=== PATIENT | female | born 1975 | race Caucasian/White ===

== ENCOUNTER 2022-05-18 03:18 | Outpatient (CLI) | payer BC, SELFPAY ==
[2022-05-18 15:50] LABS: Abs Immature Grans 0.05 10^3/uL (0.0-0.06); Absolute Basophil Count 0.05 10^3/uL (0.0-0.2); Absolute Eosinophil Count 0.12 10^3/uL (0.0-0.7); Absolute Lymphocyte Count 1.65 10^3/uL (1.2-3.4); Absolute Monocyte Count 0.58 10^3/uL (0.1-0.8); Basophils % 0.6; Eosinophils % 1.3; HCT 39.1 % (36.0-46.0); HGB 13.2 g/dL (11.2-15.7); Immature Grans % 0.6; Lymphocytes % 18.4; MCH 30.5 pg (27.0-33.0); MCHC 33.8 % (32.0-36.0); MCV 90 fL (80-95); MPV 9.2 fL (8.0-11.0); Monocytes % 6.5; Neutrophils % 72.6; Platelet Count 295 10^3/uL (130-400); RBC 4.33 10^6/uL (3.93-5.22); RDW 13.1 % (11.7-14.6); RDW-SD 43.4 fL; WBC 8.95 10^3/uL (4.4-10.8)
[2022-05-18 16:47] LABS: Iron 70 ug/dL (50-170); Total Iron Binding Capacity 293 ug/dL (250-450); Transferrin Sat 24 % (15-50)
[2022-05-18 17:16] LABS: ALT 20 U/L (14-59); AST 10 U/L (15-37); Albumin 3.7 g/dL (3.4-5.0); Alkaline Phosphatase 91 U/L (46-116); Anion Gap 9.8 mmol/L (3-11); BUN 17 mg/dL (7-18); Bilirubin, Total 0.4 mg/dL (0.2-1.0); CO2 24.2 mmol/L (21.0-32.0); CREATININE 0.7 mg/dL (0.55-1.02); Calcium 9.2 mg/dL (8.5-10.1); Calculated LDL 110 mg/dL (<100); Chloride 106 mmol/L (98-107); Cholesterol 191 mg/dL (<200); Ferritin 64 ng/mL (8-252); Folate 8.6 ng/mL (8.6-20.0); Glucose 98 mg/dL (74-106); HDL Cholesterol 49 mg/dL (40-60); Magnesium 2.2 mg/dL (1.8-2.4); Potassium 3.4 mmol/L (3.5-5.1); Sodium 140 mmol/L (136-145); TSH 1.48 uIU/mL (0.36-3.74); Total Protein 7.7 g/dL (6.4-8.2); Triglyceride 161 mg/dL (<150); Vitamin B12 383 pg/mL (193-986)
[2022-05-18 17:29] LABS: Vitamin D 25 Total 31.9 ng/mL (30-100)
[2022-05-18 17:32] LABS: FREE T4 0.72 ng/dL (0.76-1.46)
[2022-05-19 20:11] LABS: T3,Free 3.5 pg/mL (2.8-5.3)
[2022-05-21 10:58] LABS: Lipoprotein (a) <7 nmol/L (<75)
[2022-05-22 14:37] LABS: Thyroperoxidase Antibody <28 U/mL (<=60)
== END 2022-05-18 03:19 | disposition home or self-care (01) ==
PROVIDERS: PCP Naturopath; Visit Provider Naturopath
DX: Z13.220 Encounter for screening for lipoid disorders (principal); K59.09 Other constipation; R53.83 Other fatigue; E55.9 Vitamin D deficiency, unspecified
CPT/HCPCS: 36415; 80053; 80061; 82306; 83695; 82607; 82728; 82746; 83540; 83550; 83735; 84439; 84443; 84481; 85025; 86376

== ENCOUNTER 2022-07-28 03:09 | Outpatient (CLI) | payer BC, SELFPAY ==
[2022-07-28 15:38] LABS: Calculated LDL 121 mg/dL (<100); Cholesterol 216 mg/dL (<200); FREE T4 0.68 ng/dL (0.76-1.46); HDL Cholesterol 59 mg/dL (40-60); Potassium 3.9 mmol/L (3.5-5.1); TSH 3.01 uIU/mL (0.36-3.74); Triglyceride 181 mg/dL (<150); Vitamin B12 556 pg/mL (193-986)
[2022-07-28 15:41] LABS: Folate > 20.0 ng/mL (8.6-20.0)
[2022-07-28 15:50] LABS: Vitamin D 25 Total 50.8 ng/mL (30-100)
== END 2022-07-28 03:10 | disposition home or self-care (01) ==
LOC: LBO 03:10
PROVIDERS: PCP Naturopath; Visit Provider Naturopath
DX: E03.9 Hypothyroidism, unspecified (principal); E53.8 Deficiency of other specified B group vitamins; E87.6 Hypokalemia; E78.00 Pure hypercholesterolemia, unspecified; E55.9 Vitamin D deficiency, unspecified
CPT/HCPCS: 36415; 80061; 82306; 82607; 82746; 84132; 84439; 84443